=== PATIENT | female | born 1960 | race Caucasian/White ===

== ENCOUNTER 2018-10-21 12:14 | Inpatient (IN) | payer MEDICAID, OTHER ==
[~2018-10-21] VITALS: Ht 162.6 cm; Wt 52.2 kg
[2018-10-21 12:53] LABS: BASOPHILS # (AUTO) 0.1 K/uL (0.0-8.0); BASOPHILS % (AUTO) 0.6 % (0.0-2.0); HEMATOCRIT 23.4 % (31.2-41.9); HEMOGLOBIN 7.7 g/dL (10.9-14.3); LYMPHOCYTES # (AUTO) 1.5 K/uL (20.0-40.0); LYMPHOCYTES % (AUTO) 16.8 % (20.5-51.5); MEAN CORPUSCULAR HEMOGLOBIN 25.7 uug (24.7-32.8); MEAN CORPUSCULAR HGB CONC 33 g/dL (32.3-35.6); MEAN CORPUSCULAR VOLUME 78.2 fL (75.5-95.3); MONOCYTES # (AUTO) 0.2 K/uL (2.0-10.0); MONOCYTES % (AUTO) 2.7 % (0.0-11.0); NEUTROPHILS # (AUTO) 7.2 K/uL (1.8-8.9); NEUTROPHILS % (AUTO) 79.9 % (38.5-71.5); PLATELET COUNT (AUTO) 531 K/uL (179-408)
[2018-10-21 13:00] LABS: CREATININE 3.2 mg/dL (0.6-1.3); POTASSIUM 4.4 mmol/L (3.5-5.1)
[2018-10-21 13:06] LABS: BILIRUBIN,DIRECT 0.3 mg/dL (0.0-0.2); BILIRUBIN,TOTAL 0.6 mg/dL (0.2-1.0); TOTAL PROTEIN, SERUM 8.8 g/dL (6.4-8.2)
[2018-10-21 13:09] LABS: ETHANOL < 3 MG/DL (0-0)
[2018-10-21] MEDS ORDERED: LORAZEPAM 2 MG/1 ML VIAL ONE ×2 (13:11→13:47)
[2018-10-21 13:15] LABS: CREATINE KINASE, TOTAL 385 U/L (26-192)
[2018-10-21] MEDS ORDERED: LORAZEPAM 2 MG/1 ML VIAL IV ONE ×2 (13:15→13:45)
[2018-10-21] MEDS ORDERED: IV NORMAL SALINE 1000 ML BAG IV ONE (13:15)
[2018-10-21 13:57] LABS: *BILIRUBIN,URIN NEGATIVE (NEGATIVE); *BLOOD, URINE 2+ (NEGATIVE); *CLARITY,URINE CLOUDY (CLEAR); *COLOR,URINE YELLOW (YELLOW); *KETONES,URINE NEGATIVE (NEGATIVE); *UROBILINOGEN,URINE 0.2 E.U./dl (NORMAL); LEUKOCYTE ESTERASE ,URINE 3+ (NEGATIVE); NITRITE, URINE POSITIVE (NEGATIVE); UGLUCOSE NEGATIVE (NEGATIVE)
[2018-10-21 14:02] LABS: BACTERIA,URINE MANY /HPF (NONE SEEN); SQUAMOUS EPITHELIAL CELL,UR FEW /HPF (NONE SEEN); WBC,URINE TNTC /HPF (0-3)
[2018-10-21] MEDS ORDERED: KETAMINE HCL 500 MG/10 ML INJ IV ONE (14:15)
[2018-10-21] MEDS ORDERED: KETAMINE HCL 500 MG/10 ML INJ ONE (14:17)
[2018-10-21 14:32] LABS: *AMPHETAMINE, URINE POSITIVE (NEGATIVE); *BARBITURATE, URINE NEGATIVE (NEGATIVE); *CANNABINOID, URINE NEGATIVE (NEGATIVE); *COCCAINE, URINE NEGATIVE (NEGATIVE); *OPIATE, URINE POSITIVE (NEGATIVE); *PHENCYCLIDINE SCREEN,URINE NEGATIVE (NEGATIVE)
[2018-10-21] MEDS ORDERED: CEFTRIAXONE 2 G in IV DEXTROSE 5% 100 ML IV ONE (15:00)
[2018-10-21 17:02] VITALS: BP 111/76
[2018-10-21] MEDS ORDERED: ONDANSETRON 4 MG/2 ML VIAL IV PRN (18:00)
[2018-10-21] MEDS ORDERED: MORPHINE SULFATE 2 MG/1 ML DISP.SYRIN IV PRN (18:00)
[2018-10-21] MEDS ORDERED: HALOPERIDOL LACTATE 5 MG/1 ML VIAL IM PRN (18:00)
[2018-10-21] MEDS ORDERED: LORAZEPAM 2 MG/1 ML VIAL IV PRN (18:00)
[2018-10-21] MEDS: IV NS 1000 ML 1,000 ML IV PRN (18:29)
[2018-10-21] MEDS: ACETAMINOPHEN 325 MG TABLET PO PRN (20:34)
[2018-10-21 20:43] LABS: IRON, SERUM 81 ug/dL (50-175)
[2018-10-21 22:50] VITALS: BP 110/67
[2018-10-21 23:05] VITALS: BP 103/63
[2018-10-21 23:20] VITALS: BP 102/64
[2018-10-21 23:50] VITALS: BP 101/62
[2018-10-22] VITALS (8 sets, daily range): BP systolic 102–112; BP diastolic 59–70
[2018-10-22] MEDS: PANTOPRAZOLE SODIUM 40 MG TABLET.DR PO SCH (06:28)
[2018-10-22 06:33] LABS: BILIRUBIN,TOTAL 0.5 mg/dL (0.2-1.0); CREATININE 2.3 mg/dL (0.6-1.3); MAGNESIUM 2.5 mg/dL (1.8-2.4); PHOSPHOROUS 4.3 mg/dL (2.5-4.9); POTASSIUM 3.4 mmol/L (3.5-5.1); TOTAL PROTEIN, SERUM 7.1 g/dL (6.4-8.2)
[2018-10-22 06:39] LABS: THYROID STIMULATING HORMONE 0.445 mIU/mL (0.358-3.740)
[2018-10-22 06:54] LABS: BASOPHILS # (AUTO) 0.1 K/uL (0.0-8.0); BASOPHILS % (AUTO) 0.7 % (0.0-2.0); EOSINOPHILS % (AUTO) 0.6 % (0.0-7.0); HEMOGLOBIN 8.3 g/dL (10.9-14.3); LYMPHOCYTES # (AUTO) 1.8 K/uL (20.0-40.0); LYMPHOCYTES % (AUTO) 23.8 % (20.5-51.5); MEAN CORPUSCULAR HEMOGLOBIN 26.3 uug (24.7-32.8); MEAN CORPUSCULAR HGB CONC 33 g/dL (32.3-35.6); MEAN CORPUSCULAR VOLUME 79.4 fL (75.5-95.3); MONOCYTES # (AUTO) 0.7 K/uL (2.0-10.0); MONOCYTES % (AUTO) 8.9 % (0.0-11.0); PLATELET COUNT (AUTO) 400 K/uL (179-408); RED BLOOD CELL COUNT(AUTO) 3.15 MIL/uL (3.63-4.92); WHITE BLOOD COUNT (AUTO) 7.5 K/uL (3.8-11.8)
[2018-10-22] MEDS: IV NS 1000 ML 1,000 ML IV PRN (11:28)
[2018-10-22] MEDS: ACETAMINOPHEN 325 MG TABLET PO PRN (11:57)
[2018-10-22] MEDS ORDERED: Z GUARD REMEDY PASTE 57 GM TUBE TOP PRN (13:15)
[2018-10-22] MEDS: CEFTRIAXONE 1 G in IV DEXTROSE 5% 50 ML IV SCH (14:41)
[2018-10-22] MEDS ORDERED: POTASSIUM CHLORIDE 10 MEQ TAB.PRT.SR PO ONE (15:45)
[2018-10-22] MEDS ORDERED: QUET50TA PO (19:07)
[2018-10-22] MEDS ORDERED: ACET1TAB23 PO (19:07)
[2018-10-23] MEDS: IV NS 1000 ML 1,000 ML IV PRN ×2 (00:58→15:59)
[2018-10-23 05:00] VITALS: BP 114/72
[2018-10-23] MEDS: PANTOPRAZOLE SODIUM 40 MG TABLET.DR PO SCH (06:03)
[2018-10-23 08:03] LABS: BASOPHILS % (AUTO) 0.8 % (0.0-2.0); EOSINOPHILS # (AUTO) 0.1 K/uL (0.0-0.7); EOSINOPHILS % (AUTO) 1.8 % (0.0-7.0); HEMATOCRIT 29.2 % (31.2-41.9); HEMOGLOBIN 9.6 g/dL (10.9-14.3); LYMPHOCYTES # (AUTO) 1.7 K/uL (20.0-40.0); LYMPHOCYTES % (AUTO) 27.2 % (20.5-51.5); MEAN CORPUSCULAR HEMOGLOBIN 26.1 uug (24.7-32.8); MEAN CORPUSCULAR HGB CONC 33 g/dL (32.3-35.6); MEAN CORPUSCULAR VOLUME 79.6 fL (75.5-95.3); MONOCYTES # (AUTO) 0.4 K/uL (2.0-10.0); MONOCYTES % (AUTO) 6.5 % (0.0-11.0); NEUTROPHILS # (AUTO) 3.9 K/uL (1.8-8.9); NEUTROPHILS % (AUTO) 63.7 % (38.5-71.5); PLATELET COUNT (AUTO) 394 K/uL (179-408); RED BLOOD CELL COUNT(AUTO) 3.67 MIL/uL (3.63-4.92); WHITE BLOOD COUNT (AUTO) 6.1 K/uL (3.8-11.8)
[2018-10-23 08:13] LABS: BILIRUBIN,TOTAL 0.3 mg/dL (0.2-1.0); CREATININE 1.6 mg/dL (0.6-1.3); PHOSPHOROUS 2.5 mg/dL (2.5-4.9); POTASSIUM 3.9 mmol/L (3.5-5.1); TOTAL PROTEIN, SERUM 6.9 g/dL (6.4-8.2)
[2018-10-23 08:37] LABS: *CREATININE,URINE 28.7 mg/dL (30-125); *URINE TOTAL PROTEIN RANDOM 36.2 mg/dL (<150/24HR)
[2018-10-23 08:39] LABS: *BILIRUBIN,URIN NEGATIVE (NEGATIVE); *BLOOD, URINE 1+ (NEGATIVE); *CLARITY,URINE CLEAR (CLEAR); *COLOR,URINE YELLOW (YELLOW); *KETONES,URINE NEGATIVE (NEGATIVE); *UROBILINOGEN,URINE 0.2 E.U./dl (NORMAL); LEUKOCYTE ESTERASE ,URINE TRACE (NEGATIVE); NITRITE, URINE NEGATIVE (NEGATIVE); PH,URINE 7.5 (5.0-8.0); UGLUCOSE NEGATIVE (NEGATIVE)
[2018-10-23 09:34] LABS: SQUAMOUS EPITHELIAL CELL,UR FEW /HPF (NONE SEEN)
[2018-10-23 09:35] LABS: BACTERIA,URINE NONE SEEN /HPF (NONE SEEN); RBC,URINE 20-50 /HPF (0-3)
[2018-10-23 11:00] VITALS: BP 106/70
[2018-10-23] MEDS: CEFTRIAXONE 1 G in IV DEXTROSE 5% 50 ML IV SCH (15:56)
[2018-10-23 16:06] VITALS: BP 112/63
[2018-10-23 20:37] VITALS: BP 107/69
[2018-10-24 04:40] VITALS: BP 115/62
[2018-10-24] MEDS: PANTOPRAZOLE SODIUM 40 MG TABLET.DR PO SCH (06:03)
[2018-10-24 07:07] LABS: CREATININE 1.4 mg/dL (0.6-1.3); MAGNESIUM 1.8 mg/dL (1.8-2.4); PHOSPHOROUS 2.2 mg/dL (2.5-4.9); POTASSIUM 3.9 mmol/L (3.5-5.1)
[2018-10-24 07:15] LABS: BASOPHILS % (AUTO) 0.6 % (0.0-2.0); EOSINOPHILS # (AUTO) 0.1 K/uL (0.0-0.7); EOSINOPHILS % (AUTO) 2.4 % (0.0-7.0); HEMATOCRIT 29.8 % (31.2-41.9); HEMOGLOBIN 9.9 g/dL (10.9-14.3); LYMPHOCYTES # (AUTO) 1.6 K/uL (20.0-40.0); LYMPHOCYTES % (AUTO) 28.3 % (20.5-51.5); MEAN CORPUSCULAR HEMOGLOBIN 25.7 uug (24.7-32.8); MEAN CORPUSCULAR HGB CONC 33 g/dL (32.3-35.6); MEAN CORPUSCULAR VOLUME 77.3 fL (75.5-95.3); MONOCYTES # (AUTO) 0.4 K/uL (2.0-10.0); MONOCYTES % (AUTO) 6.2 % (0.0-11.0); NEUTROPHILS # (AUTO) 3.6 K/uL (1.8-8.9); NEUTROPHILS % (AUTO) 62.5 % (38.5-71.5); PLATELET COUNT (AUTO) 406 K/uL (179-408); RED BLOOD CELL COUNT(AUTO) 3.85 MIL/uL (3.63-4.92); WHITE BLOOD COUNT (AUTO) 5.7 K/uL (3.8-11.8)
[2018-10-24] MEDS: LEVOFLOXACIN 500 MG TABLET PO SCH (08:51)
[2018-10-24] MEDS ORDERED: NEUTRA PHOS PACKET PO ONE (10:00)
[2018-10-24 11:27] VITALS: BP 100/53
[2018-10-24] MEDS: ACETAMINOPHEN 325 MG TABLET PO PRN (13:53)
[2018-10-24 15:12] VITALS: BP 107/77
[2018-10-24 20:06] VITALS: BP 116/64
[2018-10-25] MEDS: PANTOPRAZOLE SODIUM 40 MG TABLET.DR PO SCH (06:01)
[2018-10-25 06:35] VITALS: BP 110/68
[2018-10-25 06:58] LABS: BASOPHILS % (AUTO) 0.8 % (0.0-2.0); EOSINOPHILS # (AUTO) 0.1 K/uL (0.0-0.7); EOSINOPHILS % (AUTO) 2.7 % (0.0-7.0); HEMOGLOBIN 10.6 g/dL (10.9-14.3); LYMPHOCYTES # (AUTO) 1.7 K/uL (20.0-40.0); LYMPHOCYTES % (AUTO) 32.8 % (20.5-51.5); MEAN CORPUSCULAR HEMOGLOBIN 26.3 uug (24.7-32.8); MEAN CORPUSCULAR HGB CONC 33 g/dL (32.3-35.6); MEAN CORPUSCULAR VOLUME 79.8 fL (75.5-95.3); MONOCYTES # (AUTO) 0.3 K/uL (2.0-10.0); MONOCYTES % (AUTO) 6.4 % (0.0-11.0); NEUTROPHILS # (AUTO) 2.9 K/uL (1.8-8.9); NEUTROPHILS % (AUTO) 57.3 % (38.5-71.5); PLATELET COUNT (AUTO) 380 K/uL (179-408); RED BLOOD CELL COUNT(AUTO) 4.02 MIL/uL (3.63-4.92); WHITE BLOOD COUNT (AUTO) 5.2 K/uL (3.8-11.8)
[2018-10-25 08:16] LABS: BILIRUBIN,TOTAL 0.2 mg/dL (0.2-1.0); CREATININE 1.5 mg/dL (0.6-1.3); MAGNESIUM 1.9 mg/dL (1.8-2.4); PHOSPHOROUS 2.3 mg/dL (2.5-4.9); POTASSIUM 4.5 mmol/L (3.5-5.1); TOTAL PROTEIN, SERUM 7.3 g/dL (6.4-8.2)
[2018-10-25] MEDS: LEVOFLOXACIN 500 MG TABLET PO SCH (08:32)
[2018-10-25] MEDS ORDERED: NEUTRA PHOS PACKET PO ONE (09:15)
[2018-10-25 09:59] LABS: *BASOS 0 % (Not Estab.); *EOS 2 % (Not Estab.); *EOS ABSOLUTE 0.1 x10E3/uL (0.0-0.4); *HCT 31.8 % (34.0-46.6); *HGB 10.2 g/dL (11.1-15.9); *IMMATURE GRANULOCYTES 1 % (Not Estab.); *LYMPHOCYTES 28 % (Not Estab.); *LYMPHOCYTES ABSOLUTE 1.6 x10E3/uL (0.7-3.1); *MCH 25.6 pg (26.6-33.0); *MCHC 32.1 g/dL (31.5-35.7); *MCV 80 fL (79-97); *MONOCYTES 5 % (Not Estab.); *MONOCYTES ABSOLUTE 0.3 x10E3/uL (0.1-0.9); *NEUTROPHILS 64 % (Not Estab.); *NEUTROPHILS ABSOLUTE 3.7 x10E3/uL (1.4-7.0); *PLT 331 x10E3/uL (150-450); *RBC 3.99 x10E6/uL (3.77-5.28); *RDW 16.4 % (12.3-15.4); *WBC 5.7 x10E3/uL (3.4-10.8)
[2018-10-25 10:10] LABS: *HELPER T-LYMPH MARKR(CD4)ABSO 142 /uL (359-1519); *HELPER T-LYNPH MARKER CD4)% 8.9 % (30.8-58.5)
[2018-10-25 11:53] VITALS: BP 110/75
[2018-10-25] MEDS ORDERED: LEVO500T2 PO (12:56)
[2018-10-26 04:10] LABS: A/G RATIO 0.7 (0.7-1.7); ALBUMIN 2.5 g/dL (2.9-4.4); ALPHA-1-GLOBULIN 0.3 g/dL (0.0-0.4); ALPHA-2-GLOBULIN 1.1 g/dL (0.4-1.0); BETA GLOBULIN 0.6 g/dL (0.7-1.3); GAMMA GLOBULIN 1.7 g/dL (0.4-1.8); GLOBULIN, TOTAL 3.6 g/dL (2.2-3.9); M-SPIKE Not Observed g/dL (Not Observed)
== END 2018-10-25 14:00 | disposition home or self-care (01) | DRG 720 ==
LOC: ER 12:14 → MEDSURG3 16:03
PROVIDERS: ADMIT Internal Medicine; ATTEND Internal Medicine
PROC: 30233N1 Transfusion of Nonautologous Red Blood Cells into Peripheral Vein, Percutaneous Approach (ICD-10-PCS; principal; 2018-10-21)
DX: A41.51 Sepsis due to Escherichia coli [E. coli] (principal); N17.0 Acute kidney failure with tubular necrosis; E43 Unspecified severe protein-calorie malnutrition; G92 Toxic encephalopathy; E87.0 Hyperosmolality and hypernatremia; E86.0 Dehydration; D64.9 Anemia, unspecified; R41.82 Altered mental status, unspecified; Z59.0 Homelessness; N39.0 Urinary tract infection, site not specified; R65.20 Severe sepsis without septic shock; Z68.1 Body mass index [BMI] 19.9 or less, adult; F20.9 Schizophrenia, unspecified; Z79.899 Other long term (current) drug therapy; Z91.19 Patient's noncompliance with other medical treatment and regimen; S00.81XA Abrasion of other part of head, initial encounter; W19.XXXA Unspecified fall, initial encounter; Y92.410 Unspecified street and highway as the place of occurrence of the external cause; Z86.19 Personal history of other infectious and parasitic diseases; R73.03 Prediabetes; F19.10 Other psychoactive substance abuse, uncomplicated; K92.2 Gastrointestinal hemorrhage, unspecified
CPT/HCPCS: 36415; 70030-TC; 70450; 71045; 80307; 83550; 83605; 83735; 83970; 84100; 84155; 84156; 84165; 84300; 84443; 85025; 86361; 86850; 86900; 86901; 86920; 87040; 87077; 87086; 87806; 93005; A4663; G0378; G0480; J0696; J2060; J3490; J7030; J7050; J7060; P9016-BL; P9021